=== PATIENT | female | born 1960 | race African-American/Black ===

== ENCOUNTER 2020-03-09 06:18 | Inpatient (IN) | payer OTHER ==
[~2020-03-09] VITALS: Ht 172.7 cm; Wt 83.0 kg
[2020-03-09] MEDS ORDERED: ESMOLOL 2500MG PREMIX 250 ML IV ONE ×4 (07:00→12:00)
[2020-03-09 08:06] LABS: EOSINOPHILS % 2.4 % (0.0-5.0); HEMATOCRIT. 41.7 % (36.0-48.0); HEMOGLOBIN. 13.7 g/dL (12.0-16.0); LYMPHOCYTES % 39.5 % (20.0-50.0); MEAN PLATELET VOLUME 9.3 fl (7.4-10.4); MONOCYTES % 9.4 % (2.0-8.0); NEUTROPHILS % 47.7 % (40.0-76.0); PLATELET 206 x1000/uL (130-400); RED BLOOD CELL COUNT 4.74 mill/uL (4.2-5.4); RED CELL DISTRIBUTION WIDTH 12.5 % (11.6-14.6)
[2020-03-09 08:11] LABS: CHLORIDE 110 mEq/L (98-107)
[2020-03-09 08:21] LABS: T4 FREE 1.53 ng/dL (0.76-1.46)
[2020-03-09] MEDS ORDERED: PROPYLTHIOURACIL 50MG TABLET PO SCH ×2 (08:45)
[2020-03-09] MEDS ORDERED: POTASSIUM CHLORIDE 20MEQ TABLET SR PO NR (09:00)
[2020-03-09] MEDS ORDERED: SODIUM CHLORIDE 0.9% 500 ML IV ONE (09:00)
[2020-03-09] MEDS ORDERED: ESMOLOL 2500MG PREMIX 250 ML IV PRN (12:15)
[2020-03-09] MEDS: METHIMAZOLE 5MG TABLET PO SCH ×2 (13:19→17:54)
[2020-03-09 17:02] VITALS: BP 118/52
[2020-03-09] MEDS ORDERED: METH5TAB68 PO (17:39)
[2020-03-09] MEDS ORDERED: ASPI-1497 PO (17:40)
[2020-03-09 20:00] VITALS: BP 111/72
[2020-03-10] VITALS: BP 134/62
[2020-03-10 04:00] VITALS: BP 109/51
[2020-03-10 08:00] VITALS: BP 111/53
[2020-03-10] MEDS: METHIMAZOLE 5MG TABLET PO SCH ×3 (09:21→18:26)
[2020-03-10 12:00] VITALS: BP 114/59
[2020-03-10 12:26] LABS: T4 FREE 1.51 ng/dL (0.76-1.46)
[2020-03-10] MEDS ORDERED: TAP MT (13:09)
[2020-03-10 16:00] VITALS: BP 112/59
[2020-03-10 16:07] LABS: CREATINE KINASE 92 IU/L (26-192)
[2020-03-10 16:09] LABS: CREATINE KINASE MB FRACTION 1.2 ng/mL (0.5-3.6)
[2020-03-10] MEDS ORDERED: APIXABAN 5 MG TABLET PO SCH (17:00)
[2020-03-10] MEDS ORDERED: APIX5TAB PO (18:27)
[2020-03-10] MEDS ORDERED: COR3 PO (18:27)
[2020-03-10 19:47] VITALS: BP 121/64
[2020-03-10] MEDS ORDERED: CARVEDILOL 3.125 MG TABLET PO SCH (21:00)
== END 2020-03-10 21:00 | disposition home or self-care (01) | DRG 310 ==
LOC: ER 06:18 → 8WST 09:39 → EDBEDREQSVC 13:08 → ENRESERV 15:19
PROVIDERS: ADMIT Family Medicine; ATTEND Family Medicine
DX: I48.91 Unspecified atrial fibrillation (principal); E05.90 Thyrotoxicosis, unspecified without thyrotoxic crisis or storm; E87.6 Hypokalemia; R73.9 Hyperglycemia, unspecified; Z79.82 Long term (current) use of aspirin
CPT/HCPCS: 36415; 71045; 80053; 80061; 82550; 82553; 83036; 83880; 84439; 84443; 84480; 84481; 84484; 85025; 85379; 93005; 93306; 99291; J3490

== ENCOUNTER 2020-03-25 15:15 | Inpatient (IN) | payer OTHER ==
[~2020-03-25] VITALS: Ht 172.7 cm; Wt 83.0 kg
[~2020-03-25 15:15] MED LIST: APIX5TAB PO; COR3 PO; METH5TAB68 PO; TAP MT
[2020-03-25] MEDS ORDERED: DILTIAZEM HCL 5MG/ML 5ML VIAL IV ONE ×2 (15:30→17:30)
[2020-03-25 16:19] LABS: EOSINOPHILS % 1.6 % (0.0-5.0); HEMATOCRIT. 40.2 % (36.0-48.0); HEMOGLOBIN. 13.5 g/dL (12.0-16.0); LYMPHOCYTES % 27.3 % (20.0-50.0); MEAN CORPUSCULAR HEMOGLOBIN 29.4 pg (28.0-32.0); MEAN CORPUSCULAR VOLUME 87.2 fL (81.0-99.0); MEAN PLATELET VOLUME 8.6 fl (7.4-10.4); NEUTROPHILS % 62.1 % (40.0-76.0); PLATELET 225 x1000/uL (130-400); RED BLOOD CELL COUNT 4.61 mill/uL (4.2-5.4); RED CELL DISTRIBUTION WIDTH 12.5 % (11.6-14.6)
[2020-03-25 16:26] LABS: CHLORIDE 111 mEq/L (98-107)
[2020-03-25 16:30] LABS: PROTHROMBIN TIME 10.3 sec (9.6-11.0)
[2020-03-25] MEDS ORDERED: DILTIAZEM HCL 120MG CAPSULE CD 24HR PO ONE (17:30)
[2020-03-25 17:40] LABS: CLARITY URINE CLEAR (CLEAR); COLOR URINE YELLOW (YELLOW); KETONES URINE NEGATIVE (NEGATIVE); LEUKOCYTE ESTERASE URINE NEGATIVE (NEGATIVE); NITRITE URINE NEGATIVE (NEGATIVE); OCCULT BLOOD URINE NEGATIVE (NEGATIVE); PROTEIN URINE NEGATIVE (NEGATIVE); SPECIFIC GRAVITY URINE 1.008 (1.005-1.030); UROBILINOGEN URINE 0.2 E.U./dL (0.2-1.0)
[2020-03-25] MEDS ORDERED: ASPIRIN 81MG TABLET PO ONE (18:30)
[2020-03-25] MEDS ORDERED: DILTIAZEM HCL 125 MG in DEXT 5% WATER 100 ML IV ONE (18:30)
[2020-03-25] MEDS ORDERED: METHIMAZOLE 5MG TABLET PO SCH (20:15)
[2020-03-25] MEDS ORDERED: METHIMAZOLE 10MG TABLET PO SCH (20:30)
[2020-03-25] MEDS ORDERED: MAGNESIUM/ALUMINUM HYDROXIDE/SIMETHICONE 30ML UDC PO PRN (23:15)
[2020-03-25] MEDS ORDERED: ACETAMINOPHEN 325MG TABLET PO PRN (23:15)
[2020-03-25] MEDS ORDERED: DOCUSATE SODIUM 100MG CAPSULE PO PRN (23:15)
[2020-03-25] MEDS ORDERED: ONDANSETRON HCL 4MG/2ML INJ IV PRN (23:15)
[2020-03-25] MEDS ORDERED: CLONIDINE 0.1MG TABLET PO PRN (23:15)
[2020-03-25] MEDS ORDERED: HYDROCODONE/ACETAMINOPHEN 5/325MG TABLET PO PRN (23:15)
[2020-03-26 01:05] VITALS: BP 118/76
[2020-03-26 04:00] VITALS: BP 106/49
[2020-03-26 06:33] LABS: CHLORIDE 109 mEq/L (98-107)
[2020-03-26 06:43] LABS: LDL CHOLESTEROL 84 mg/dL (5-100)
[2020-03-26 06:44] LABS: CREATINE KINASE MB FRACTION 1.1 ng/mL (0.5-3.6); T4 FREE 1.51 ng/dL (0.76-1.46)
[2020-03-26 06:45] LABS: CREATINE KINASE 53 IU/L (26-192); HDL CHOLESTEROL 48 mg/dL (40-59)
[2020-03-26 06:58] LABS: BASOPHILS % 0.8 % (0.0-2.0); EOSINOPHILS % 2.5 % (0.0-5.0); HEMATOCRIT. 37.4 % (36.0-48.0); HEMOGLOBIN. 12.8 g/dL (12.0-16.0); LYMPHOCYTES % 35.6 % (20.0-50.0); MEAN CORPUSCULAR HEMOGLOBIN 29.7 pg (28.0-32.0); MEAN CORPUSCULAR VOLUME 86.9 fL (81.0-99.0); MEAN PLATELET VOLUME 8.9 fl (7.4-10.4); MONOCYTES % 10.8 % (2.0-8.0); NEUTROPHILS % 50.3 % (40.0-76.0); PLATELET 206 x1000/uL (130-400); RED CELL DISTRIBUTION WIDTH 12.4 % (11.6-14.6)
[2020-03-26 08:00] VITALS: BP 109/45
[2020-03-26] MEDS ORDERED: METHIMAZOLE 5MG TABLET PO SCH (09:00)
[2020-03-26] MEDS ORDERED: CARVEDILOL 3.125 MG TABLET PO SCH (09:00)
[2020-03-26] MEDS: APIXABAN 5 MG TABLET PO SCH ×2 (09:37→17:18)
[2020-03-26 12:00] VITALS: BP 114/37
[2020-03-26] MEDS: DILTIAZEM HCL 60MG TABLET PO SCH ×2 (14:00→21:07)
[2020-03-26 16:00] VITALS: BP 112/44
[2020-03-26 16:08] LABS: CREATINE KINASE 59 IU/L (26-192)
[2020-03-26 16:10] LABS: CREATINE KINASE MB FRACTION < 1.0 ng/mL (0.5-3.6)
[2020-03-26] MEDS: METHIMAZOLE 10MG TABLET PO SCH (17:18)
[2020-03-26 20:26] VITALS: BP 102/63
[2020-03-26] MEDS ORDERED: METOPROLOL TARTRATE 50MG TABLET PO SCH (21:00)
[2020-03-26] MEDS: METOPROLOL TARTRATE 25MG TABLET PO SCH (21:00)
[2020-03-27 00:21] VITALS: BP 113/61
[2020-03-27 04:00] VITALS: BP 118/71
[2020-03-27] MEDS: DILTIAZEM HCL 60MG TABLET PO SCH (06:22)
[2020-03-27 08:00] VITALS: BP 110/49
[2020-03-27 08:33] VITALS: BP 110/49
[2020-03-27] MEDS: METHIMAZOLE 10MG TABLET PO SCH (08:52)
[2020-03-27] MEDS: APIXABAN 5 MG TABLET PO SCH (08:53)
[2020-03-27] MEDS: METOPROLOL TARTRATE 25MG TABLET PO SCH (08:53)
[2020-03-27] MEDS ORDERED: METH10TA7 PO (10:18)
[2020-03-27 10:22] VITALS: BP_SYST 110; BP_SYST 112; BP_DIAS 35; BP_DIAS 49
[2020-03-27 12:00] VITALS: BP 112/35
== END 2020-03-27 13:23 | disposition home or self-care (01) | DRG 309 ==
LOC: ER 15:15 → MICUSO 21:32 → 6WST 22:51
PROVIDERS: ADMIT Hospitalist; ATTEND Hospitalist
DX: I48.0 Paroxysmal atrial fibrillation (principal); D68.59 Other primary thrombophilia; E05.00 Thyrotoxicosis with diffuse goiter without thyrotoxic crisis or storm; E87.6 Hypokalemia; E78.1 Pure hyperglyceridemia; E11.65 Type 2 diabetes mellitus with hyperglycemia
CPT/HCPCS: 36415; 71045; 80053; 80061; 81003; 82533; 82550; 82553; 83036; 83880; 84439; 84443; 84481; 84484; 85025; 93005; 93970; 96374; 99285; J3490; J7060

== ENCOUNTER 2020-04-17 02:38 | Inpatient (IN) | payer OTHER ==
[~2020-04-17] VITALS: Ht 172.7 cm; Wt 83.9 kg
[~2020-04-17 02:38] MED LIST changes: +METH10TA7 PO; -METH5TAB68 PO; -TAP MT
[2020-04-17 03:45] LABS: BASOPHILS % 0.9 % (0.0-2.0); EOSINOPHILS % 1.3 % (0.0-5.0); HEMATOCRIT. 39.2 % (36.0-48.0); HEMOGLOBIN. 13.2 g/dL (12.0-16.0); LYMPHOCYTES % 13.7 % (20.0-50.0); MEAN CORPUSCULAR HEMOGLOBIN 28.9 pg (28.0-32.0); MEAN CORPUSCULAR VOLUME 86.1 fL (81.0-99.0); MEAN PLATELET VOLUME 8.7 fl (7.4-10.4); MONOCYTES % 6.8 % (2.0-8.0); NEUTROPHILS % 77.3 % (40.0-76.0); PLATELET 210 x1000/uL (130-400); RED BLOOD CELL COUNT 4.55 mill/uL (4.2-5.4); RED CELL DISTRIBUTION WIDTH 12.5 % (11.6-14.6)
[2020-04-17 03:51] LABS: CHLORIDE 110 mEq/L (98-107)
[2020-04-17] MEDS: METOPROLOL TARTRATE 5MG/5ML VIAL IV SCH ×2 (05:58→06:10)
[2020-04-17] MEDS ORDERED: METOPROLOL TARTRATE 5MG/5ML VIAL IV SCH (06:19)
[2020-04-17] MEDS ORDERED: DILTIAZEM HCL 125 MG in DEXT 5% WATER 100 ML IV ONE (07:15)
[2020-04-17] MEDS: METOPROLOL TARTRATE 25MG TABLET PO SCH ×2 (09:04→21:05)
[2020-04-17] MEDS: APIXABAN 5 MG TABLET PO SCH ×2 (09:04→16:21)
[2020-04-17] MEDS ORDERED: DOCUSATE SODIUM 100MG CAPSULE PO PRN (09:45)
[2020-04-17] MEDS ORDERED: MAGNESIUM/ALUMINUM HYDROXIDE/SIMETHICONE 30ML UDC PO PRN (09:45)
[2020-04-17] MEDS ORDERED: NITROGLYCERIN 0.4MG TABLET SL SL PRN (09:45)
[2020-04-17] MEDS ORDERED: TRAMADOL 50MG TABLET PO PRN (09:45)
[2020-04-17] MEDS ORDERED: IPRATROPIUM/ALBUTEROL 0.5-3(2.5)MG/3ML NEB NEB PRN (09:45)
[2020-04-17] MEDS ORDERED: ONDANSETRON HCL 4MG/2ML INJ IV PRN (09:45)
[2020-04-17] MEDS ORDERED: GUAIFENESIN 200MG/10ML SUGAR FREE UDC PO PRN (09:45)
[2020-04-17] MEDS ORDERED: CLONIDINE 0.1MG TABLET PO PRN (09:45)
[2020-04-17] MEDS ORDERED: LORAZEPAM 0.5MG TABLET PO PRN (09:45)
[2020-04-17] MEDS ORDERED: ACETAMINOPHEN 325MG TABLET PO PRN ×2 (09:45)
[2020-04-17] MEDS ORDERED: ASPIRIN 325MG EC TABLET PO SCH (10:00)
[2020-04-17] MEDS ORDERED: DIGOXIN 500MCG/2ML AMP IV NR (12:45)
[2020-04-17 15:43] VITALS: BP 121/70
[2020-04-17 15:49] VITALS: BP 121/70
[2020-04-17] MEDS ORDERED: METH5TAB68 MT (16:00)
[2020-04-17] MEDS: METHIMAZOLE 5MG TABLET PO SCH (16:21)
[2020-04-17 17:30] VITALS: BP 117/84
[2020-04-17 18:32] LABS: CREATINE KINASE 49 IU/L (26-192)
[2020-04-17 18:33] LABS: CREATINE KINASE MB FRACTION < 1.0 ng/mL (0.5-3.6)
[2020-04-17 20:00] VITALS: BP 109/71
[2020-04-17] MEDS ORDERED: ZOLPIDEM TARTRATE 5MG TABLET PO PRN (21:00)
[2020-04-17] MEDS: ASCORBIC ACID 500 MG TABLET PO SCH (21:05)
[2020-04-17] MEDS: FAMOTIDINE 20MG TABLET PO SCH (21:05)
[2020-04-17 22:00] VITALS: BP 124/55
[2020-04-17 23:54] LABS: CREATINE KINASE 48 IU/L (26-192); CREATINE KINASE MB FRACTION < 1.0 ng/mL (0.5-3.6)
[2020-04-18] VITALS (12 sets, daily range): BP systolic 106–143; BP diastolic 42–87
[2020-04-18] MEDS: FAMOTIDINE 20MG TABLET PO SCH ×2 (08:31→20:32)
[2020-04-18] MEDS: APIXABAN 5 MG TABLET PO SCH ×2 (08:31→17:16)
[2020-04-18] MEDS: ASCORBIC ACID 500 MG TABLET PO SCH ×2 (08:31→20:32)
[2020-04-18] MEDS: METHIMAZOLE 5MG TABLET PO SCH (08:31)
[2020-04-18] MEDS: ZINC SULFATE 220 MG ( 50 ) CAPSULE PO SCH (08:33)
[2020-04-18] MEDS: METOPROLOL TARTRATE 25MG TABLET PO SCH ×2 (08:33→20:33)
[2020-04-18] MEDS ORDERED: METHIMAZOLE 5MG TABLET PO SCH (17:00)
[2020-04-18] MEDS: METHIMAZOLE 10MG TABLET PO SCH (23:13)
[2020-04-19] VITALS (11 sets, daily range): BP systolic 100–158; BP diastolic 34–95
[2020-04-19] MEDS: METHIMAZOLE 10MG TABLET PO SCH ×2 (06:04→17:14)
[2020-04-19] MEDS: METOPROLOL TARTRATE 25MG TABLET PO SCH (09:35)
[2020-04-19] MEDS: ASCORBIC ACID 500 MG TABLET PO SCH ×2 (09:35→20:16)
[2020-04-19] MEDS: APIXABAN 5 MG TABLET PO SCH ×2 (09:35→17:14)
[2020-04-19] MEDS: ZINC SULFATE 220 MG ( 50 ) CAPSULE PO SCH (09:35)
[2020-04-19] MEDS: FAMOTIDINE 20MG TABLET PO SCH ×3 (09:35→20:16)
[2020-04-19] MEDS: PROPRANOLOL HCL 10MG TABLET PO SCH ×2 (10:51→20:16)
[2020-04-20] VITALS (8 sets, daily range): BP systolic 101–130; BP diastolic 55–97
[2020-04-20] MEDS: METHIMAZOLE 10MG TABLET PO SCH (05:32)
[2020-04-20] MEDS: APIXABAN 5 MG TABLET PO SCH (09:54)
[2020-04-20] MEDS: ZINC SULFATE 220 MG ( 50 ) CAPSULE PO SCH (09:54)
[2020-04-20] MEDS: ASCORBIC ACID 500 MG TABLET PO SCH (09:54)
[2020-04-20] MEDS: FAMOTIDINE 20MG TABLET PO SCH (09:54)
[2020-04-20] MEDS: PROPRANOLOL HCL 10MG TABLET PO SCH (09:58)
== END 2020-04-20 15:50 | disposition home or self-care (01) | DRG 310 ==
LOC: ER 02:38 → 3WST 09:32 → EDBEDREQSVC 11:27 → ENRESERV 14:24
PROVIDERS: ADMIT Internal Medicine; ATTEND Internal Medicine
DX: I48.0 Paroxysmal atrial fibrillation (principal); I10 Essential (primary) hypertension; E05.90 Thyrotoxicosis, unspecified without thyrotoxic crisis or storm; E03.9 Hypothyroidism, unspecified; Z79.01 Long term (current) use of anticoagulants; Z79.899 Other long term (current) drug therapy
CPT/HCPCS: 36415; 71045; 80053; 82550; 82553; 84439; 84443; 84481; 84484; 85025; 93005; 93970; 99291; J3490; J7060